=== PATIENT | male | born 1990 | race Two or more races ===

== ENCOUNTER 2022-09-12 05:43 | Emergency (ER) | payer BC ==
[~2022-09-12] VITALS: Ht 182.9 cm; Wt 77.1 kg
[2022-09-12] MEDS ORDERED: ONDANSETRON HCL INJ 2MG/ML 2ML 2 MG/ML VIAL IV STA (06:28)
[2022-09-12] MEDS ORDERED: KETOROLAC TROMETHAMINE 30 MG/ML VIAL IV STA (06:28)
[2022-09-12] MEDS ORDERED: BENZONATATE 100 MG CAP PO STA (06:30)
[2022-09-12] MEDS ORDERED: SODIUM CHLORIDE FLUSH 10 ML SYR IV PRN (06:30)
[2022-09-12 06:43] LABS: BASOPHILS # (AUTO) 0.1 (0.0-0.1); BASOPHILS % 0.5 % (0.0-1.0); EOSINOPHILS # (AUTO) 2.1 (0.0-0.4); EOSINOPHILS % 20.8 % (0.0-6.0); HEMATOCRIT 36.9 % (38.2-49.6); HEMOGLOBIN 12.9 g/dL (14.0-18.0); LYMPHOCYTES # (AUTO) 3.2 (1.0-3.2); LYMPHOCYTES % 31.1 % (18.0-39.1); MONOCYTES # (AUTO) 0.9 (0.2-0.8); MONOCYTES % 8.8 % (4.4-11.3); NEUTROPHILS # (AUTO) 3.9 (2.1-6.9); NEUTROPHILS % 38.4 % (38.7-80.0); PLATELET COUNT 227 x10e3/uL (140-360); RED BLOOD COUNT 3.69 x10e6/uL (4.3-5.7); RED CELL DISTRIBUTION WIDTH 12.3 % (11.7-14.4)
[2022-09-12 07:14] LABS: ALANINE AMINOTRANSFERASE 19 IU/L (0-55); ALBUMIN 3.7 g/dL (3.5-5.0); ALBUMIN/GLOBULIN RATIO 1.1 (0.8-2.0); ALKALINE PHOSPHATASE 61 IU/L (40-150); ANION GAP 13.2 mmol/L (8-16); BLOOD UREA NITROGEN 13 mg/dL (7-26); BUN/CREATININE RATIO 14 (6-25); CALCIUM 9.1 mg/dL (8.4-10.2); CARBON DIOXIDE 23 mmol/L (22-29); CHLORIDE 106 mmol/L (98-107); CREATININE, SERUM 0.93 mg/dL (0.72-1.25); GLUCOSE 107 mg/dL (74-118); POTASSIUM 4.2 mmol/L (3.5-5.1); SODIUM 138 mmol/L (136-145)
[2022-09-12 07:58] LABS: EOSINOPHILS % (MANUAL) 18 % (0-7); LYMPHOCYTES % (MANUAL) 21 % (19-48); MONOCYTES % (MANUAL) 4 % (3.4-9.0); NEUTROPHILS % (MANUAL) 52 % (40-74); PLATELET ESTIMATE ADEQUATE; PLATELET MORPHOLOGY COMMENT NORMAL; RBC MORPHOLOGY COMMENT NORMAL
[2022-09-12] MEDS ORDERED: IOPAMIDOL 370 MG/ML 100 ML INFUS..BTL INJ ONE (08:26)
[2022-09-12] MEDS ORDERED: ULTRAM 50MG50 MG PO (09:10)
[2022-09-12] MEDS ORDERED: ONDANSETRON ODT4 MG PO (09:10)
[2022-09-12] MEDS ORDERED: BENZONATATE100 MG PO (09:10)
[2022-09-12 10:31] VITALS: BP 134/85
== END 2022-09-12 09:24 | disposition home or self-care (01) ==
LOC: ER 05:47
DX: R05.9 Cough, unspecified (principal); J06.9 Acute upper respiratory infection, unspecified; R74.8 Abnormal levels of other serum enzymes; Z20.822 Contact with and (suspected) exposure to COVID-19; R94.31 Abnormal electrocardiogram [ECG] [EKG]
CPT/HCPCS: 36415; 71046; 71260; 80053; 83690; 84484; 85025; 85379; 87400; 93005; 99284; J1885; J2405; Q9967; U0002